=== PATIENT | female | born 1980 | race Hispanic/Latino ===

== ENCOUNTER → 2021-03-30 | Outpatient (CLI) | payer OTHER, BC | END | disposition home or self-care (01) | LOC: RAH 11:25 | PROVIDERS: ATTEND Internal Medicine | DX: M47.816 Spondylosis without myelopathy or radiculopathy, lumbar region (principal); M19.042 Primary osteoarthritis, left hand; M19.041 Primary osteoarthritis, right hand; M46.1 Sacroiliitis, not elsewhere classified | CPT/HCPCS: 72100; 72202 ==